=== PATIENT | female | born 1995 | race Caucasian/White ===

== ENCOUNTER 2017-12-08 09:10 | Emergency (ER) | payer BC ==
[~2017-12-08] VITALS: Ht 165.1 cm; Wt 61.4 kg
[2017-12-08 09:31] VITALS: BP 117/80; TEMP 98.2
[2017-12-08 10:35] VITALS: PULSE 74
== END 2017-12-08 10:35 | disposition home or self-care (01) ==
LOC: COL.ER 09:10
DX: T78.40XA Allergy, unspecified, initial encounter (principal)
CPT/HCPCS: J1100